=== PATIENT | female | born 1950 | race Caucasian/White ===

== ENCOUNTER 2017-03-15 12:19 | Inpatient (IN) | payer OTHER ==
[~2017-03-15] VITALS: Ht 157.5 cm; Wt 46.0 kg
[2017-03-15 12:25] VITALS: Ht 157.5 cm; Wt 46.0 kg
[2017-03-15] MEDS ORDERED: AMLODIPINE BESY1 C12 PO (14:59)
[2017-03-15 15:26] LABS: PLATELET COUNT 352 x10^3mcL (130-400); RED CELL DISTRIBUTION WIDTH 14.3 % (11.5-14.5)
[2017-03-15 15:40] LABS: ALKALINE PHOSPHATASE 126 U/L (46-116); ALT/SGPT 11 U/L (14-59); AST/SGOT 10 U/L (15-37); BILIRUBIN TOTAL 0.4 mg/dL (0.20-1.00); CALCIUM 8.9 mg/dL (8.5-10.1); CARBON DIOXIDE 23.5 mmol/L (21-32); CHLORIDE SERUM 102 mmol/L (98-107); CREATININE SERUM 0.9 mg/dL (0.6-1.0); GFR1 > 60 mL/min; GLUCOSE SERUM 94 mg/dL (74-106); SODIUM SERUM 139 mmol/L (136-145); TOTAL PROTEIN, SERUM 6.8 g/dL (6.4-8.2)
[2017-03-15 15:41] LABS: ALBUMIN 2.3 g/dL (3.4-5.0)
[2017-03-15 15:42] LABS: POTASSIUM SERUM 2.7 mmol/L (3.5-5.1)
[2017-03-15 16:49] LABS: BAND NEUTROPHIL 25 % (0-10); MONOCYTE 4 % (0-7)
[2017-03-15 16:50] LABS: METAMYELOCTE 1 % (0-2); SEGMENTED NEUTROPHILS 67 % (37-75); rbc morphology (normal/abnorm) NORMAL (NORMAL)
[2017-03-15 18:19] VITALS: BP 123/56
[2017-03-15 18:40] LABS: T3 TOTAL 0.48 ng/mL
[2017-03-15 18:55] LABS: MAGNESIUM 2.4 mg/dL (1.8-2.4); PHOSPHOROUS 3.3 mg/dL (2.5-4.9)
[2017-03-15 19:00] VITALS: BP 123/56
[2017-03-15 19:02] LABS: CHOLESTEROL/HDL RATIO 11.9
[2017-03-15 19:15] LABS: FREE T4 1.21 ng/dL (0.76-1.46); FREE THYROXINE INDEX 2.3 ug/dL (1.4-4.5); T4(THYROXINE) 6.5 ug/dL (4.7-13.3)
[2017-03-15 22:56] LABS: UA SPECIFIC GRAVITY <=1.005 (1.005-1.035); microscopic required? YES; urine erythrocyte 2+ (NEGATIVE)
[2017-03-15 23:11] LABS: AMPHETAMINE QUAL UR NONE DETECTED (NEG <=1000)
[2017-03-16] VITALS (7 sets, daily range): BP systolic 112–135; BP diastolic 56–77
[2017-03-16 07:39] LABS: CALCIUM 8.4 mg/dL (8.5-10.1); CARBON DIOXIDE 24.4 mmol/L (21-32); CHLORIDE SERUM 106 mmol/L (98-107); CREATININE SERUM 0.8 mg/dL (0.6-1.0); GFR1 > 60 mL/min; GLUCOSE SERUM 94 mg/dL (74-106); POTASSIUM SERUM 3.2 mmol/L (3.5-5.1); SODIUM SERUM 141 mmol/L (136-145)
[2017-03-16 07:50] LABS: PLATELET COUNT 348 x10^3mcL (130-400); RED CELL DISTRIBUTION WIDTH 14.4 % (11.5-14.5)
[2017-03-16 11:00] LABS: BAND NEUTROPHIL 28 % (0-10); BASOPHIL 0 % (0-2); METAMYELOCTE 1 % (0-2); MONOCYTE 4 % (0-7); SEGMENTED NEUTROPHILS 62 % (37-75)
[2017-03-16 11:01] LABS: burr cell (echinocyte) 1+; rbc morphology (normal/abnorm) ABNORMAL (NORMAL)
[2017-03-16] MEDS ORDERED: ENALAPRIL MALEA20 MG PO (12:17)
[2017-03-16] MEDS ORDERED: OXYBUTYNIN CHLOR5 MG PO (12:18)
[2017-03-16] MEDS ORDERED: LORAZEPAM2 MG PO (12:19)
[2017-03-16 13:51] LABS: RED CELL DISTRIBUTION WIDTH 14.4 % (11.5-14.5)
[2017-03-16 14:04] LABS: PLATELET COUNT 403 x10^3mcL (130-400)
[2017-03-16 14:09] LABS: BAND NEUTROPHIL 2 % (0-10); BASOPHIL 0 % (0-2); SEGMENTED NEUTROPHILS 94 % (37-75)
[2017-03-16 14:12] LABS: PLATELET MORPHOLOGY PLATELETS INCREASED; rbc morphology (normal/abnorm) ABNORMAL (NORMAL)
[2017-03-17 06:00] VITALS: BP 137/68
[2017-03-17 06:19] VITALS: BP 137/68
[2017-03-17 07:43] LABS: BASOPHIL % 0.1 % (0-2); RED CELL DISTRIBUTION WIDTH 14.1 % (11.5-14.5)
[2017-03-17 08:21] LABS: CALCIUM 8.4 mg/dL (8.5-10.1); CARBON DIOXIDE 19.9 mmol/L (21-32); CHLORIDE SERUM 105 mmol/L (98-107); CREATININE SERUM 0.7 mg/dL (0.6-1.0); GFR1 > 60 mL/min; GLUCOSE SERUM 98 mg/dL (74-106); MAGNESIUM 2.1 mg/dL (1.8-2.4); PHOSPHOROUS 2.7 mg/dL (2.5-4.9); SODIUM SERUM 138 mmol/L (136-145)
[2017-03-17 08:24] LABS: POTASSIUM SERUM 2.8 mmol/L (3.5-5.1)
[2017-03-17 09:23] LABS: PLATELET COUNT 450 x10^3mcL (130-400)
[2017-03-17 09:40] VITALS: BP 120/53
[2017-03-17 12:45] VITALS: BP 122/68
[2017-03-17 17:37] VITALS: BP 116/62
[2017-03-17 19:15] VITALS: BP 109/62
[2017-03-18 05:52] VITALS: BP 109/57
[2017-03-18 08:20] LABS: CALCIUM 8.5 mg/dL (8.5-10.1); CARBON DIOXIDE 20.8 mmol/L (21-32); CHLORIDE SERUM 106 mmol/L (98-107); CREATININE SERUM 0.6 mg/dL (0.6-1.0); GFR1 > 60 mL/min; GLUCOSE SERUM 111 mg/dL (74-106); MAGNESIUM 2.2 mg/dL (1.8-2.4); PHOSPHOROUS 2.9 mg/dL (2.5-4.9); POTASSIUM SERUM 3.3 mmol/L (3.5-5.1); SODIUM SERUM 139 mmol/L (136-145)
[2017-03-18 09:08] VITALS: BP 98/53
[2017-03-18 13:50] VITALS: BP 106/55
[2017-03-18 14:45] LABS: BAND NEUTROPHIL 2 % (0-10); MONOCYTE 5 % (0-7); SEGMENTED NEUTROPHILS 88 % (37-75); rbc morphology (normal/abnorm) NORMAL (NORMAL)
[2017-03-18 14:47] LABS: PLATELET MORPHOLOGY PLATELETS INCREASED
[2017-03-18 17:10] VITALS: BP 113/54
[2017-03-18 18:41] LABS: PLATELET COUNT 506 x10^3mcL (130-400)
[2017-03-18 22:14] VITALS: BP 110/61
[2017-03-19 05:48] VITALS: BP 106/51
[2017-03-19 07:17] LABS: RED CELL DISTRIBUTION WIDTH 14.2 % (11.5-14.5)
[2017-03-19 07:29] LABS: CALCIUM 8.4 mg/dL (8.5-10.1); CARBON DIOXIDE 21.7 mmol/L (21-32); CHLORIDE SERUM 107 mmol/L (98-107); CREATININE SERUM 0.6 mg/dL (0.6-1.0); GFR1 > 60 mL/min; GLUCOSE SERUM 103 mg/dL (74-106); MAGNESIUM 2.4 mg/dL (1.8-2.4); PHOSPHOROUS 2.7 mg/dL (2.5-4.9); POTASSIUM SERUM 4.3 mmol/L (3.5-5.1); SODIUM SERUM 140 mmol/L (136-145)
[2017-03-19 07:46] LABS: BASOPHIL % 0 % (0-2); PLATELET COUNT 597 x10^3mcL (130-400)
[2017-03-19 18:40] VITALS: BP 112/53
[2017-03-19 22:22] VITALS: BP 117/62
[2017-03-20 05:12] VITALS: BP 96/49
[2017-03-20 07:38] LABS: BASOPHIL % 0.1 % (0-2); RED CELL DISTRIBUTION WIDTH 14.4 % (11.5-14.5)
[2017-03-20 07:39] LABS: PLATELET COUNT 669 x10^3mcL (130-400)
[2017-03-20 08:26] LABS: CALCIUM 8.5 mg/dL (8.5-10.1); CARBON DIOXIDE 25.7 mmol/L (21-32); CHLORIDE SERUM 104 mmol/L (98-107); CREATININE SERUM 0.7 mg/dL (0.6-1.0); GFR1 > 60 mL/min; GLUCOSE SERUM 106 mg/dL (74-106); MAGNESIUM 2.4 mg/dL (1.8-2.4); PHOSPHOROUS 3.8 mg/dL (2.5-4.9); SODIUM SERUM 139 mmol/L (136-145)
[2017-03-20 10:48] VITALS: BP 106/53
[2017-03-20 18:13] VITALS: BP 103/52
[2017-03-20 21:53] VITALS: BP 103/51
[2017-03-21 06:07] VITALS: BP 112/49
[2017-03-21 07:43] LABS: CALCIUM 8.6 mg/dL (8.5-10.1); CARBON DIOXIDE 24.5 mmol/L (21-32); CHLORIDE SERUM 104 mmol/L (98-107); CREATININE SERUM 0.7 mg/dL (0.6-1.0); GFR1 > 60 mL/min; GLUCOSE SERUM 102 mg/dL (74-106); MAGNESIUM 2.5 mg/dL (1.8-2.4); PHOSPHOROUS 3.4 mg/dL (2.5-4.9); POTASSIUM SERUM 4.3 mmol/L (3.5-5.1); SODIUM SERUM 138 mmol/L (136-145)
[2017-03-21 07:54] LABS: BASOPHIL % 0.1 % (0-2); RED CELL DISTRIBUTION WIDTH 13.9 % (11.5-14.5)
[2017-03-21 07:57] LABS: PLATELET COUNT 714 x10^3mcL (130-400)
[2017-03-21 12:23] VITALS: BP 101/55
[2017-03-21 15:18] VITALS: BP 120/62
[2017-03-21 18:54] VITALS: BP 110/45
[2017-03-21 21:45] VITALS: BP 130/68
[2017-03-22 06:15] VITALS: BP 111/59; BP 117/63
[2017-03-22 07:43] LABS: CALCIUM 9.1 mg/dL (8.5-10.1); CARBON DIOXIDE 23.5 mmol/L (21-32); CHLORIDE SERUM 103 mmol/L (98-107); CREATININE SERUM 0.7 mg/dL (0.6-1.0); GFR1 > 60 mL/min; GLUCOSE SERUM 126 mg/dL (74-106); MAGNESIUM 2.7 mg/dL (1.8-2.4); PHOSPHOROUS 3.1 mg/dL (2.5-4.9); SODIUM SERUM 138 mmol/L (136-145)
[2017-03-22 07:48] LABS: BASOPHIL % 0.1 % (0-2); RED CELL DISTRIBUTION WIDTH 13.8 % (11.5-14.5)
[2017-03-22 08:07] LABS: PLATELET COUNT 904 x10^3mcL (130-400)
[2017-03-22 10:37] VITALS: BP 103/56
[2017-03-22 14:03] VITALS: BP 117/47
[2017-03-22 16:58] VITALS: BP 94/41
[2017-03-22 20:57] VITALS: BP 105/55
[2017-03-23 05:42] VITALS: BP 98/56
[2017-03-23 07:38] LABS: BASOPHIL % 0.6 % (0-2); RED CELL DISTRIBUTION WIDTH 13.4 % (11.5-14.5)
[2017-03-23 07:40] LABS: PLATELET COUNT 889 x10^3mcL (130-400)
[2017-03-23 07:47] LABS: CALCIUM 8.5 mg/dL (8.5-10.1); CARBON DIOXIDE 27.7 mmol/L (21-32); CHLORIDE SERUM 104 mmol/L (98-107); CREATININE SERUM 0.7 mg/dL (0.6-1.0); GFR1 > 60 mL/min; GLUCOSE SERUM 83 mg/dL (74-106); MAGNESIUM 2.5 mg/dL (1.8-2.4); PHOSPHOROUS 3.3 mg/dL (2.5-4.9); POTASSIUM SERUM 3.8 mmol/L (3.5-5.1); SODIUM SERUM 140 mmol/L (136-145)
[2017-03-23 09:47] VITALS: BP 99/48
[2017-03-23 17:47] VITALS: BP 95/52
[2017-03-23 21:27] VITALS: BP 120/57
[2017-03-24 05:49] VITALS: BP 146/53
[2017-03-24 07:35] LABS: BASOPHIL % 0.5 % (0-2); RED CELL DISTRIBUTION WIDTH 13.6 % (11.5-14.5)
[2017-03-24 07:39] LABS: PLATELET COUNT 1000 x10^3mcL (130-400)
[2017-03-24 08:15] LABS: CALCIUM 8.5 mg/dL (8.5-10.1); CARBON DIOXIDE 24.2 mmol/L (21-32); CHLORIDE SERUM 102 mmol/L (98-107); CREATININE SERUM 0.6 mg/dL (0.6-1.0); GFR1 > 60 mL/min; GLUCOSE SERUM 94 mg/dL (74-106); MAGNESIUM 2.2 mg/dL (1.8-2.4); PHOSPHOROUS 3.5 mg/dL (2.5-4.9); POTASSIUM SERUM 3.9 mmol/L (3.5-5.1); SODIUM SERUM 138 mmol/L (136-145)
[2017-03-24 09:49] VITALS: BP 121/69
[2017-03-24] MEDS ORDERED: APAP/HYDROCODON1 T11 PO (13:05)
[2017-03-24] MEDS ORDERED: AMLODIPINE BESY10 M2 PO (13:05)
[2017-03-24] MEDS ORDERED: VANCOMYCIN HYD PO (13:18)
[2017-03-24] MEDS ORDERED: COLACE100 MG PO (13:19)
[2017-03-24] MEDS ORDERED: LAC PO (13:19)
[2017-03-24] MEDS ORDERED: IBUPROFEN800 MG PO (13:29)
[2017-03-24 13:59] VITALS: BP 121/69
[2017-03-24] MEDS ORDERED: BACTRIM1 TAB PO (15:20)
[2017-03-24 15:56] LABS: BASOPHIL % 0.6 % (0-2); RED CELL DISTRIBUTION WIDTH 13.5 % (11.5-14.5)
[2017-03-24 16:01] LABS: PLATELET COUNT 1022 x10^3mcL (130-400)
[2017-03-24 17:18] VITALS: BP 114/53
== END 2017-03-24 18:29 | disposition home health service (06) | DRG 710 ==
LOC: ED 12:19 → DU 15:49 → MU 15:49 → DU 17:58 → MU 03-18 07:45
PROVIDERS: Emergency Medicine; Family Medicine; Student in an Organized Health Care Education/Training Program; Surgery
PROC: 0J9M0ZZ Drainage of Left Upper Leg Subcutaneous Tissue and Fascia, Open Approach (ICD-10-PCS; principal; 2017-03-21 13:00)
DX: A41.9 Sepsis, unspecified organism (principal); N17.0 Acute kidney failure with tubular necrosis; E43 Unspecified severe protein-calorie malnutrition; N39.0 Urinary tract infection, site not specified; I10 Essential (primary) hypertension; D63.8 Anemia in other chronic diseases classified elsewhere; S70.02XS Contusion of left hip, sequela; S70.02XA Contusion of left hip, initial encounter; L03.116 Cellulitis of left lower limb; L03.314 Cellulitis of groin; R65.20 Severe sepsis without septic shock; M13.152 Monoarthritis, not elsewhere classified, left hip; E87.6 Hypokalemia; R31.9 Hematuria, unspecified; F12.10 Cannabis abuse, uncomplicated; Z68.1 Body mass index [BMI] 19.9 or less, adult; W22.03XS Walked into furniture, sequela
CPT/HCPCS: 83880; 84439; J0690; J0696; J1170; J1885; J1956; J2405; J2704; J3010; J3370; J3480; J3490; J7030; J7040; J7050; J7120; Q0092; Q9967

== ENCOUNTER 2020-02-23 13:46 | Emergency (ER) | payer OTHER ==
[~2020-02-23] VITALS: Ht 154.9 cm; Wt 54.0 kg
[~2020-02-23 13:46] MED LIST: AMLODIPINE BESY1 C12 PO; AMLODIPINE BESY10 M2 PO; APAP/HYDROCODON1 T11 PO; BACTRIM1 TAB PO; COLACE100 MG PO; ENALAPRIL MALEA20 MG PO; IBUPROFEN800 MG PO; LAC PO; LORAZEPAM2 MG PO; OXYBUTYNIN CHLOR5 MG PO; VANCOMYCIN HYD PO
[2020-02-23 13:58] VITALS: Ht 154.9 cm; Wt 54.0 kg
[2020-02-23 17:12] VITALS: BP 187/103
== END 2020-02-23 17:12 | disposition home or self-care (01) ==
LOC: ED 13:46
DX: M25.562 Pain in left knee (principal); I10 Essential (primary) hypertension
CPT/HCPCS: J1885; J7512